=== PATIENT | male | born 1945 | race Caucasian/White ===

== ENCOUNTER 2019-10-31 22:15 | Inpatient (IN) | payer OTHER ==
[~2019-10-31] VITALS: Ht 180.3 cm; Wt 94.8 kg
[2019-10-31 22:23] VITALS: Ht 180.3 cm; Wt 94.8 kg
--- NOTE | 2019-10-31 22:43 | NUR ---
LAB AT BEDSIDE WITH DRAW PER MD ORDER
[2019-10-31 22:56] LABS: BASOPHIL % 0.4 % (0-2); PLATELET COUNT 200 x10^3mcL (130-400)
--- NOTE | 2019-10-31 23:14 | NUR ---
DR. CHOWDHURY AT BESIDE WITH UPDATE
[2019-10-31 23:26] LABS: CALCIUM 8.7 mg/dL (8.5-10.1); CARBON DIOXIDE 23.8 mmol/L (21-32); CHLORIDE SERUM 105 mmol/L (98-107); CREATININE SERUM 1.2 mg/dL (0.7-1.3); GLUCOSE SERUM 123 mg/dL (74-106); SODIUM SERUM 141 mmol/L (136-145); T3 TOTAL 1.16 ng/mL
[2019-10-31 23:35] LABS: ERYTHROCYTE SED RATE 22 mm/hr (0-20); FREE T4 0.76 ng/dL (0.76-1.46); FREE THYROXINE INDEX 2.2 ug/dL (1.4-4.5); T4(THYROXINE) 7.2 ug/dL (4.7-13.3)
[2019-10-31 23:39] LABS: ALBUMIN 3.5 g/dL (3.4-5.0); ALKALINE PHOSPHATASE 109 U/L (46-116); ALT/SGPT 35 U/L (16-63); AST/SGOT 28 U/L (15-37); BILIRUBIN TOTAL 0.5 mg/dL (0.20-1.00); C REACTIVE PROTEIN 1.8 mg/dL (<=0.9); TOTAL PROTEIN, SERUM 7.3 g/dL (6.4-8.2)
[2019-11-01 00:11] LABS: CK-MB 1.6 ng/mL (0-3.6)
--- NOTE | 2019-11-01 00:52 | NUR ---
DR. CHOWDHURY AT BEDSIDE WITH UPDATE ON POC
[2019-11-01 00:54] LABS: microscopic required? YES; urine erythrocyte 1+ (NEGATIVE)
[2019-11-01 01:05] LABS: AMPHETAMINE QUAL UR NONE DETECTED (See below)
--- NOTE | 2019-11-01 02:48 | NUR ---
REPORT GIVEN TO DENNIS ANDERSON TELE
--- NOTE | 2019-11-01 03:15 | NUR ---
PT TRANSFERRED TO BED 250B VIA [place] ON UPPER MARKER WITH JUSTIN JOSE AND EMT TAVON AT PT SIDE.
--- NOTE | 2019-11-01 03:20 | NUR ---
RECEIVED PT FROM ED. PT AOX4, DENIES CAPUTO/DIZZINESS. PLACED ON TELE #12, READING SR WITH PVCS. DENIES CP/PRESSURE. DENIES SOB/DIFFICULTY BREATHING, ON RA. IV TO LFA, INTACT AND PATENT. BED IN LOWEST POSITION. CALL LIGHT WITHIN REACH. WILL CONTINUE TO MONITOR.
[2019-11-01 03:48] VITALS: BP 134/79
--- NOTE | 2019-11-01 06:41 | NUR ---
PT RESTING IN BED. DENIES PAIN/DISCOMFORT AT THIS TIME. BED IN LOWEST POSITION. CALL LIGHT WITHIN REACH. WILL CONTINUE TO MONITOR.
--- NOTE | 2019-11-01 07:05 | NUR ---
SEEN RESTING IN BED AAOX4. DENIES PAIN. BREATHING E/U ON ROOM AIR. TELE# [address], SR WITH OCCATIONAL PVC'S. STATED ABLE TO AMBULATE TO BATHROOM WITHOUT DIFFICULTY. VOIDS, URINAL AT BEDSIDE. IVF 1/2NS AT 75ML/HR TO LFA INFUSING WELL. CALL LIGHT PLACED WITHIN EASY REACH. SIDERAILS UP X2.
[2019-11-01 08:00] VITALS: BP 161/92
[2019-11-01 08:33] LABS: BASOPHIL % 0.2 % (0-2); PLATELET COUNT 181 x10^3mcL (130-400)
[2019-11-01 08:37] LABS: RED CELL DISTRIBUTION WIDTH 15.2 % (11.5-14.5)
--- NOTE | 2019-11-01 08:59 | NUR ---
CALLED TO DR. HORTON, MADE AWARE OF WBC IS 19.1 THIS AM, WILL PENDING ID. /OR DR. HERNANDEZ TO SEE PATIENT PER DR. HORTON.
--- NOTE | 2019-11-01 10:00 | NUR ---
PATIENT MADE AWARE OF CURRENT CONDITION. ALL QUESTIONS ANSWERED AT THIS TIME. PATIENT VERBALIZED UNDERSTANDING.
[2019-11-01 11:42] VITALS: BP 146/90
[2019-11-01] MEDS ORDERED: DIGOXIN0.25 M1 PO (14:29)
[2019-11-01] MEDS ORDERED: SOTALOL HCL80 MG PO (14:30)
[2019-11-01] MEDS ORDERED: FLO4 PO (14:30)
[2019-11-01] MEDS ORDERED: LISINOPRIL40 MG (14:31)
[2019-11-01] MEDS ORDERED: LISINOPRIL40 MG PO (14:31)
[2019-11-01] MEDS ORDERED: ATORVASTATIN CA40 M1 PO (14:31)
[2019-11-01] MEDS ORDERED: GOOD SENSE OMEP20 MG PO (14:32)
[2019-11-01] MEDS ORDERED: AMBIEN5 MG PO (14:33)
[2019-11-01] MEDS ORDERED: TRA100 PO (14:35)
[2019-11-01 15:53] VITALS: BP 149/80
[2019-11-01] MEDS ORDERED: COREG12.5 MG PO (17:07)
--- NOTE | 2019-11-01 18:52 | NUR ---
AFEBRILE THROUGHOUT SHIFT. DENIES PAIN. STATED VOIDS FREELY. WALKED ON THE HALLWAY X1 ACCOMPANIED BY HIS . IVF 1/2NS INFUSING WELL AT 75ML/HR.
--- NOTE | 2019-11-01 19:20 | NUR ---
CARE ASSUMED FROM OUTGOING RN. PT RESTING COMFORTABLY IN BED. NO ACUTE DISTRESS NOTED. EVEN AND UNLABORED RESPIRATIONS ON RA. ON TELE# 12 READING SR 73 WITH PVC'S, NO PACER SPIKES NOTED. IV PATENT AND INTACT RUNNING FLUIDS PER EMAR. NO C/O PAIN AT THIS TIME. BED IN LOWEST POSITION. SIDE RAILS UPX2. CALL LIGHT WITHIN REACH. WILL CONTINUE TO MONITOR.
[2019-11-01 20:16] VITALS: BP 113/61
--- NOTE | 2019-11-01 23:47 | NUR ---
PT RESTING COMFORTABLY IN BED. NO ACUTE DISTRESS NOTED. EMPTIED 400ML YELLOW URINE FROM URINAL. NO C/O PAIN OR SOB. POC DISCUSSED WITH PT. ALL CONCERNS AND QUESTIONS ANSWERED. BED IN LOWEST POSITION. SIDE RAILS UPX2. CALL LIGHT WITHIN REACH. WILL CONTINUE TO MONITOR.
[2019-11-02 05:31] VITALS: BP 136/75
[2019-11-02 06:34] LABS: BASOPHIL % 0.3 % (0-2); PLATELET COUNT 173 x10^3mcL (130-400)
[2019-11-02 06:48] LABS: CALCIUM 8.9 mg/dL (8.5-10.1); CARBON DIOXIDE 26.8 mmol/L (21-32); CHLORIDE SERUM 106 mmol/L (98-107); CREATININE SERUM 1.1 mg/dL (0.7-1.3); GLUCOSE SERUM 106 mg/dL (74-106); POTASSIUM SERUM 4.2 mmol/L (3.5-5.1); SODIUM SERUM 141 mmol/L (136-145)
--- NOTE | 2019-11-02 06:51 | NUR ---
PT SLEPT IN INTERVALS THROUGHOUT THE SHIFT. ALL NEEDS TENDED TO AND MET. ALL SCHEDULED MEDICATIONS GIVEN. C/O INSOMNIA MEDICATED PER EMAR. ON TELE# 12 READING SR WITH OCC PVC'S, PACED ON DEMAND. NO C/O PAIN. BED IN LOWEST POSITION. SIDE RAILS UPX2. CALL LIGHT WITHIN REACH. WILL ENDORSE TO ONCOMING SHIFT.
[2019-11-02 07:14] LABS: RED CELL DISTRIBUTION WIDTH 15.2 % (11.5-14.5)
[2019-11-02 07:27] VITALS: BP 144/82
--- NOTE | 2019-11-02 07:38 | NUR ---
REPORT TAKEN FROM LANG INTERPRETER NURSE AT THE BEDSIDE, PATIENT AWAKE AND ALERT, NO NEEDS AT THIS TIME WILL CONTINUE TO MONITOR.
[2019-11-02 11:42] VITALS: BP 123/70
[2019-11-02 15:35] VITALS: BP 90/55
[2019-11-02] MEDS ORDERED: ZITHROMAX1 GM/Packe PO (16:55)
[2019-11-02] MEDS ORDERED: TAM75 PO (16:55)
--- NOTE | 2019-11-02 19:12 | NUR ---
LATE ENTRY 1829: PATIENT SIGNED DISCHARGE PAPER WORK, IV DC'D FROM LEFT FOREARM WITH CATH INTACT, SITE DRESSED WITH GAUZE AND COBAN, TELE RETURNED TO MT STATION, PATIENT VERBALIZED HE WOULD CALL A CAB FROM THE LOBBY, TAKEN DOWN BY JOSE.
== END 2019-11-02 18:45 | disposition home or self-care (01) | DRG 192 ==
LOC: ED 22:15 → DU 11-01 01:57
PROVIDERS: Specialist; ADMIT Internal Medicine
DX: J44.0 Chronic obstructive pulmonary disease with (acute) lower respiratory infection (principal); J20.9 Acute bronchitis, unspecified; J44.1 Chronic obstructive pulmonary disease with (acute) exacerbation; I10 Essential (primary) hypertension; F17.200 Nicotine dependence, unspecified, uncomplicated; Z95.0 Presence of cardiac pacemaker
CPT/HCPCS: 84439; 87804; G0378; J0696; J2405; J7030; J7060; Q0092

== ENCOUNTER 2020-10-11 10:12 | Emergency (ER) | payer OTHER, SELFPAY ==
[~2020-10-11] VITALS: Ht 180.3 cm; Wt 96.2 kg
[~2020-10-11 10:12] MED LIST: AMBIEN5 MG PO; ATORVASTATIN CA40 M1 PO; COREG12.5 MG PO; DIGOXIN0.25 M1 PO; FLO4 PO; GOOD SENSE OMEP20 MG PO; LISINOPRIL40 MG; LISINOPRIL40 MG PO; SOTALOL HCL80 MG PO; TAM75 PO; TRA100 PO; ZITHROMAX1 GM/Packe PO
[2020-10-11 10:23] VITALS: Ht 180.3 cm; Wt 96.2 kg
[2020-10-11 11:44] VITALS: BP 132/91
== END 2020-10-11 11:44 | disposition home or self-care (01) ==
LOC: ED 10:12
DX: J44.9 Chronic obstructive pulmonary disease, unspecified (principal); I10 Essential (primary) hypertension; Z95.0 Presence of cardiac pacemaker